=== PATIENT | male | born 1995 | race Caucasian/White ===

== ENCOUNTER 2017-10-14 22:53 | Emergency (ER) | payer SELFPAY | END 2017-10-15 02:12 | disposition home or self-care (01) | LOC: FTE 10-15 02:12 | DX: H10.11 Acute atopic conjunctivitis, right eye (principal); F17.210 Nicotine dependence, cigarettes, uncomplicated; Z77.098 Contact with and (suspected) exposure to other hazardous, chiefly nonmedicinal, chemicals | CPT/HCPCS: 99283 ==